=== PATIENT | female | born 1975 | race Caucasian/White ===

== ENCOUNTER 2023-01-06 12:44 | Emergency (ER) | payer OTHER, SELFPAY ==
[2023-01-06 13:00] VITALS: BP 142/86; PULSE 84; RESP 16; TEMP 36.6; O2SAT 98
--- NOTE | 2023-01-06 13:31 | ED.URI ---
HPI - URI/Sore Throat General Chief Complaint: Upper Respiratory Infection Stated Complaint: sorethroat,lt ear pain,cough Time Seen by Provider: 01/06/23 13:31 Source: patient and RN notes reviewed Mode of arrival: ambulatory Limitations: no limitations History of Present Illness HPI Narrative: 47-year-old female presented for complaint of sinus pressure and he nasal congestion, sore throat and left ear pain over the last few days. Denies sick contacts. She has taken Mucinex and NyQuil and DayQuil for symptoms. She denies shortness of breath, wheezing, nausea, vomiting, diarrhea, fevers or chills. MD elicited complaint: cough Related Data Home Medications Medication Instructions Recorded Confirmed bupropion HCl 300 mg 24 hr tablet, 300 mg PO QAM 03/03/20 01/06/23 extended release (Wellbutrin XL) Allergies Allergy/AdvReac Type Severity Reaction Status Date / Time No Known Allergies Allergy Verified 01/06/23 13:00 Review of Systems Review of Systems: CONSTITUTIONAL: Denies malaise, chills, sweats, fever EYES: Denies visual changes, redness, or discharge ENT: Reports rhinorrhea, congestion, sinus pain, otalgia, sore throat CARDIOVASCULAR: Denies chest pain, palpitations, edema RESPIRATORY: Reports cough, post nasal drainage. Denies dyspnea GASTROINTESTINAL: Denies abdominal pain, nausea, vomiting, diarrhea SKIN: Denies rash or itching MUSCULOSKELETAL: denies myalgia NEUROLOGIC: Denies headache PMF Past Medical History Medical History (Updated 01/06/23 @ 13:42 by Viridiana eYpez APRN) No pertinent past medical history Family History Family History Mother Hypertension Father Family history of heart disease in male family member before age 55 Social History Social History Smoking status: Never smoker Alcohol intake: current Exam Narrative: GENERAL: Mildly Ill-appearing, nontoxic EYES: PERRLA, conjunctivae clear ENT: Mucous membranes moist. TM pearly floyd with dull light reflex bilaterally; no tragal tenderness. Oropharynx mildly erythematous without lesions or exudate, no drooling, no hoarseness, no trismus, uvula midline. No tripod positioning, muffled voice, soft palate or pharyngeal wall bulging NECK: Supple. No lymphadenopathy CHEST: Clear to auscultation, breath sounds equal. HEART: Regular rate and rhythm. No murmur heard. SKIN: Warm, dry, no rash. NEURO: Alert and oriented x3. PSYCH: Normal mood and affect Course Course Emergency Course: Patient is aware of diagnosis, understands and agrees to treatment plan. Anticipatory guidance given. Patient agrees to follow-up as directed and is aware of reasons to seek care at the emergency department. Portions of this record may have been created with voice recognition software Level of Care: Express Care Visit Vital Signs Vital signs: Vital Signs Temperature 97.9 F 01/06/23 13:00 Pulse Rate 84 01/06/23 13:00 Respiratory Rate 16 01/06/23 13:00 Blood Pressure 142/86 H 01/06/23 13:00 Pulse Oximetry 98 01/06/23 13:00 Oxygen Delivery Room Air 01/06/23 13:00 Temperature 97.9 F 01/06/23 13:00 Pulse Rate 84 01/06/23 13:00 Respiratory Rate 16 01/06/23 13:00 Blood Pressure 142/86 H 01/06/23 13:00 Pulse Oximetry 98 01/06/23 13:00 Oxygen Delivery Room Air 01/06/23 13:00 reviewed MDM - URI/Sore Throat MDM Narrative Medical decision making narrative: strep and COVID negative. Results reviewed with patient. Advised supportive measures and signs/symptoms to go to the ER. Pt is appropriate for outpt treatment and f/u. Differential Diagnosis Differential diagnosis: Likely upper respiratory infection, otitis media, sinusitis, viral infection, influenza and pharyngitis Lab Data Labs: Strep Screen Presumptive Negative *(Refe
== END 2023-01-06 13:40 | disposition home or self-care (01) ==
PROVIDERS: Emergency Provider Nurse Practitioner Family; PCP Family Medicine
DX: J06.9 Acute upper respiratory infection, unspecified (principal); Z20.822 Contact with and (suspected) exposure to COVID-19
CPT/HCPCS: 87081; 87426; 87880; 99213; C9803; G0463

== ENCOUNTER 2024-01-12 03:08 | Day surgery (SDC) | payer OTHER, SELFPAY ==
[2023-12-18 15:33] VITALS: BMI 37.3
--- NOTE | 2024-01-09 12:19 | SUR.PREOP ---
Patient called regarding upcoming procedure. Reviewed preop instructions, appointment times, and procedure prep.
[2024-01-12 10:22] VITALS: BP 128/91; PULSE 79; RESP 18; TEMP 36.1; O2SAT 96
[2024-01-12] MEDS: LACTATED RINGERS 1,000 ML 150 ML IV CONT (10:35)
--- NOTE | 2024-01-12 10:56 | WPDANESEPPF ---
Anes - Initial Pre Proc Eval Procedure: Operation Date: 01/12/24 11:30 Proposed Procedures p Screening Colonoscopy - Ajay Poe MD Date/Time: 01/12/24 10:56 Surgeon: Ajay Poe MD Pre Op Diagnosis: neoplasm screening Patient Data Age: 48 Gender: F Height: 1.78 m Weight: 119.6 kg Last Vital Signs Temp 36.1 C L 01/12/24 10:22 Pulse 79 01/12/24 10:22 Resp 18 01/12/24 10:22 BP 128/91 H 01/12/24 10:22 Pulse Ox 96 01/12/24 10:22 O2 Del Method Room Air 01/12/24 10:22 Allergies Allergy/AdvReac Type Severity Reaction Status Date / Time No Known Allergies Allergy Verified 01/12/24 10:18 Home Medications Medication Instructions Recorded Confirmed Type levonorgestrel 21 mcg/24 hours (8 See Rx Instructions .Route .COMPLEX 01/06/23 12/18/23 History yrs) 52 mg intrauterine device (Mirena) ashwagandha extract PO 08/01/23 08/01/23 History semaglutide 1 mg/dose (4 mg/3 mL) 1 mg (0.75 mL) subcut WEEKLY #3 mL 09/12/23 12/18/23 Rx subcutaneous pen injector Patient hx anesthesia problems: none Family hx anesthesia problems: none Results Review: All pre-operative results and documents have been reviewed as part of the pre-operative evaluation. [facility] Past Medical History Medical History Anxiety BMI 39.0-39.9,adult Cough Elevated BP without diagnosis of hypertension Encounter to establish care Hyperlipidemia No pertinent past medical history Obesity, morbid, BMI 40.0-49.9 Prediabetes Screening for diabetes mellitus Family History Family History Mother Hypertension Depression Anxiety Father Family history of heart disease in male family member before age 55 Hypertension Social History Social History Smoking status: Never smoker Alcohol intake: current Drinks per week: 8 Substance use: never Substance use type: does not use Lack of Transportation: No Lack of Food: Never True Current Housing: I Have Housing Concerned About Future Housing: No Difficulty Paying Gas/Electric Bills: No Difficulty Paying for Meds: No Currently Unemployed: No Education: Associate Degree Difficulty w/ Childcare or Family Care: No Living arrangements: with family Spiritual care concerns: No Anes - Eval Final PreProcedure Day of Procedure 01/12/24 10:56 Patient weight: obese Heart: regular rate and rhythm Lungs: clear to auscultation Neurological: alert and oriented Last oral intake: >/= 8 hours ASA classification: II Emergent: no Anesthetic plan: proceed Anesthesia type and monitoring: general GIVS and standard monitoring Results Review: All pre-operative results and documents have been reviewed as part of the pre-operative evaluation. Informed Consent: The patient's anesthetic plan and its attendant risks and benefits were discussed with the patient/family/POA. Questions were solicited and answers provided to the satisfaction of the patient/family/POA.
--- NOTE | 2024-01-12 11:12 | PM.HPGS ---
History of Present Illness History of Present Illness Consent: Risks, benefits, and alternatives have been discussed and questions answered. Patient agrees to proceed with procedure. Chief complaint: neoplasm screening Narrative: Luiza Bender is a 48 year old female here for screening colonoscopy Review of Systems Constitutional: Constitutional: Denies headache(s) and Denies weakness Eyes: Eyes: Denies blurry vision ENT: Reports Normal hearing present, Denies headache(s) and Denies neck pain Cardiovascular: Cardiovascular: Denies chest pain and Denies dyspnea Respiratory: Respiratory: Denies dyspnea Gastrointestinal: Gastrointestinal: Reports no additional gastrointestinal complaints Genitourinary: Genitourinary: Denies dysuria Musculoskeletal: Musculoskeletal: Denies neck pain Integumentary/Breasts: Skin/Breast: Denies dry skin Neurologic: Reports Normal hearing present, Denies headache(s) and Denies weakness Psychiatric: Psychiatric: Denies anxiety Endocrine: Endocrine: Denies change in body appearance Hematologic/Lymphatic: Hematologic/Lymphatic: Denies easy bleeding Allergic/Immunologic: Allergic/Immunologic: Denies urticaria PMF Past Medical History Medical History (Updated 01/12/24 @ 11:12 by Ajay Poe MD) Anxiety BMI 39.0-39.9,adult Colon cancer screening Cough Elevated BP without diagnosis of hypertension Encounter to establish care Hyperlipidemia No pertinent past medical history Obesity, morbid, BMI 40.0-49.9 Prediabetes Screening for diabetes mellitus Family History Family History Mother Hypertension Depression Anxiety Father Family history of heart disease in male family member before age 55 Hypertension Social History Social History Smoking status: Never smoker Alcohol intake: current Drinks per week: 8 Substance use: never Substance use type: does not use Lack of Transportation: No Lack of Food: Never True Current Housing: I Have Housing Concerned About Future Housing: No Difficulty Paying Gas/Electric Bills: No Difficulty Paying for Meds: No Currently Unemployed: No Education: Associate Degree Difficulty w/ Childcare or Family Care: No Living arrangements: with family Spiritual care concerns: No Meds Home Medications and Allergies Home Medications Medication Instructions Recorded Confirmed Type levonorgestrel 21 mcg/24 hours (8 See Rx Instructions .Route .COMPLEX 01/06/23 12/18/23 History yrs) 52 mg intrauterine device (Mirena) mickiea extract PO 08/01/23 08/01/23 History semaglutide 1 mg/dose (4 mg/3 mL) 1 mg (0.75 mL) subcut WEEKLY #3 mL 09/12/23 12/18/23 Rx subcutaneous pen injector Allergies Allergy/AdvReac Type Severity Reaction Status Date / Time No Known Allergies Allergy Verified 01/12/24 10:18 Vital Signs Vital Signs - 24 hr 01/12/24 10:22 Temperature 97 F L Pulse Rate 79 Respiratory Rate 18 Blood Pressure 128/91 H Pulse Oximetry 96 Oxygen Delivery Room Air Exam Const: General: comfortable and no acute distress HENMT: Face/Nose/Sinus: Normal nares present Eyes: General: appearance normal, both eyes and all related structures Neck: Neck: no JVD Resp: Auscultation: clear to auscultation bilaterally Cardio: Rate: regular rate Rhythm: regular rhythm GI: Inspection: non-distended GI Palp: Yes Soft to palpation Skin: General skin exam: normal color Neuro: General: gait normal Speech: normal speech Extrem: General: normal to inspection Psych: Mental Status: mental status grossly normal Assessment and Plan Assessment and plan (1) Colon cancer screening: Code(s): Z12.11 - Encounter for screening for malignant neoplasm of colon Status: Acute Assessment and Plan: colonoscopy
[2024-01-12 11:41] VITALS: BP 139/82; PULSE 99; RESP 24; O2SAT 98
[2024-01-12 11:51] VITALS: BP 134/92; PULSE 94; RESP 18; O2SAT 97
[2024-01-12 12:01] VITALS: BP 138/98; PULSE 75; RESP 16; O2SAT 99
== END 2024-01-12 12:06 | disposition home or self-care (01) ==
PROVIDERS: PCP Nurse Practitioner Family; Visit Provider Internal Medicine Gastroenterology
PROC: 0DJD8ZZ Inspection of Lower Intestinal Tract, Via Natural or Artificial Opening Endoscopic (ICD-10-PCS; CPT 45378; principal; 2024-01-12 11:30)
DX: Z12.11 Encounter for screening for malignant neoplasm of colon (principal); K64.8 Other hemorrhoids; F41.9 Anxiety disorder, unspecified; E78.5 Hyperlipidemia, unspecified; R73.03 Prediabetes; E66.9 Obesity, unspecified; Z68.37 Body mass index [BMI] 37.0-37.9, adult; Z79.85 Long-term (current) use of injectable non-insulin antidiabetic drugs; Z97.5 Presence of (intrauterine) contraceptive device; Z82.49 Family history of ischemic heart disease and other diseases of the circulatory system
CPT/HCPCS: 45378; J2704; J7120